=== PATIENT | male | born 1990 | race Caucasian/White ===

== ENCOUNTER 2025-04-05 02:19 | Emergency (ER) | payer OTHER ==
[2025-04-05] MEDS: LORazepam 2 MG/ML SDV IM ONE (02:44)
== END 2025-04-05 02:56 ==
LOC: FB.ED 02:19
DX: F41.0 Panic disorder [episodic paroxysmal anxiety] (principal); Z88.0 Allergy status to penicillin
CPT/HCPCS: 96372; 99283; J2060; 99284